=== PATIENT | male | born 1980 | race Caucasian/White ===

== ENCOUNTER → 2016-10-27 | Outpatient (CLI) | payer MEDICAID ==
[~2016-10-27] MED LIST: GADOBUTROL 10 MMOL/10 ML PFS ONE; HYDR-3138 PO; None per pt
== END | disposition home or self-care (01) ==
LOC: CFH 13:33
PROVIDERS: ATTEND Nurse Practitioner Primary Care
DX: R51 Headache (principal)
CPT/HCPCS: 70553; A9585

== ENCOUNTER → 2016-12-25 | Outpatient (CLI) | payer MEDICAID ==
[~2016-12-25] MED LIST changes: -GADOBUTROL 10 MMOL/10 ML PFS ONE
== END | disposition home or self-care (01) ==
LOC: CARD 12:32
PROVIDERS: ATTEND Registered Nurse
DX: R41.0 Disorientation, unspecified (principal)
CPT/HCPCS: 95819